=== PATIENT | female | born 1940 | race Caucasian/White ===

== ENCOUNTER 2025-08-04 05:48 | Emergency (ER) | payer BC ==
[~2025-08-04] VITALS: Ht 154.9 cm; Wt 62.0 kg
--- NOTE | 2025-08-04 05:54 | ELECTROCARDIOGRAPH REPORT ---
[facility] Test Date: 2025-08-04 Test Time: 05:49:06 Pat Name: JACKIE SINGLETARY Department: EMERGENCY ROOM Room: Gender: F Rerecording Mixer: JENNIFER : 1940 Requested By: MARIA ELENA SIMMS Order Number: [id number] Reading MD: Dr. Denny Pearson Measurements Intervals [place] Rate: 69 P: 71 CO: 129 QRS: 4 QRSD: 89 T: 58 QT: 430 QTc: 461 Interpretive Statements Sinus rhythm Low voltage, precordial leads Electronically Signed On 08-12-2025 0:23:[address] Denny Pearson Please click the below link to view image of tracing.
--- NOTE | 2025-08-04 06:02 | Physician Documentation ---
History of Present Illness General Chief Complaint: Dizziness Stated Complaint: DIZZINESS Time Seen by MD: 06:01 History of Present Illness Initial Comments The patient is a an 85-year-old female states that she went to the bathroom this morning and then when she is trying to get off the toilet she became dizzy fell she does not recall hitting her head but she did notice that she has a hematoma to the right side of her right eyebrow. The patient states she otherwise was feeling well. She denies any recent fevers or chills. The patient states she walks a mi a day. And was unable to walk yesterday secondary to the rain. The patient denies any chest pain the patient denies any shortness of breath symptoms are mild and persistent. She does note that she has a significantly dry mouth. Medication Reconciliation Allergies: Coded Allergies: No Known Allergies (Unverified , 08/04/25) Scheduled Atorvastatin Calcium* (Lipitor*), 1 TAB PO DAILY, (Reported) Cefpodoxime Proxetil (Cefpodoxime Proxetil), 1 TAB PO Q12H Duloxetine HCl (Duloxetine HCl), 1 CAP PO DAILY, (Reported) Gabapentin (Gabapentin), 2 TAB PO Q8H, (Reported) Omeprazole (Prilosec), 1 CAP PO DAILY, (Reported) Review of Systems All Other Systems at this time: Reviewed and Negative Physical Exam Physical Exam Vital Signs: Temperature: 97.6, Source: Oral, Heart Rate: 67, Respiratory Rate: 12, BP: 110/67, Pulse Oximetry: 92, Weight: 62.000 Physical Exam VITALS: Reviewed and as above. GENERAL: Alert, no apparent distress. HEENT: Normocephalic, atraumatic, PERRL, EOMI, dry mucosa, no erythema RESPIRATORY: Trace crackles bilateral bases, normal breath sounds, no respiratory distress. CHEST: No accessory muscle use, no retractions CV: Regular rate, rhythm, no edema, no murmur, No: JVD GI: Soft, non-tender, bowels sounds present, no rebound, guarding, or rigidity BACK: No CVA tenderness, or swelling MUSCULOSKELETAL: No deformities, no edema SKIN: Warm and dry, no rash 4 x 2 cm area of ecchymosis to the right of the right eyebrow. NEURO: Oriented x4, No motor or sensory deficit PSYCH: Normal mood and affect, no agitation Progress Results/Orders Results/Orders Orders - OHSHARI HAY MD Ct Head (08/04/25 07:32) Cult Urine + [place] Ct (08/04/25 09:29) Completed Orders - SHARI HAY MD Normal Saline 1000ml (0.9% Sodium Chlori (08/04/25 06:30) Procalcitonin (08/04/25 06:30) Hs Troponin I W Calculations (08/04/25 06:33) BMP (08/04/25 06:33) PBNP (08/04/25 06:33) Ct Head (08/04/25 07:32) Normal Saline 1000ml (0.9% Sodium Chlori (08/04/25 07:00) Ua W/Microscopic, Cult If Ind (08/04/25 08:52) Vital Signs 08/04/25 08/04/25 08/04/25 08/04/25 05:49 06:28 06:28 07:54 Temp 97.6 97.6 Pulse 67 73 Resp 12 10 10 B/P (MAP) 110/67 133/62 (85) Pulse Ox 92 96 08/04/25 08/04/25 08:16 09:38 Temp 97.6 Pulse 68 76 Resp 15 20 B/P (MAP) 132/63 (86) 126/72 Pulse Ox 95 94 Laboratory Tests Test 08/04/25 06:00 08/04/25 07:44 08/04/25 08:52 White Blood Count 5.9 Red Blood Count 4.60 Hemoglobin 14.0 Hematocrit 42.7 Mean Corpuscular Volume 92.8 Mean Corpuscular Hemoglobin 30.4 Mean Corpuscular Hemoglobin Concent 32.7 L Red Cell Distribution Width 13.6 Platelet Count 247 Mean Platelet Volume 7.7 Neutrophils (%) (Auto) 52.8 Lymphocytes (%) (Auto) 32.9 Monocytes (%) (Auto) 9.6 Eosinophils (%) (Auto) 3.9 Basophils (%) (Auto) 0.8 Neutrophils # (Auto) 3.1 Lymphocytes # (Auto) 1.9 Monocytes # (Auto) 0.6 Eosinophils # (Auto) 0.2 Basophils # (Auto) 0.0 CBC Comment Chemistry Comments Sodium Level 142 Potassium Level 4.4 Chloride Level 108 H Carbon Dioxide Level 28.4 Anion Gap 6 L Blood Urea Nitrogen 11 Creatinine 0.68 Estimated GFR/1.73 m2 82 BUN/Creatinine Ratio 16.2 Glucose Level 92 Calcium Level 8.4 L Troponin I High Sensitivity 5 Pro-B-Type Natriuretic Peptide 65 Albumin 3.2 L Procalcitonin < 0.05 Urine Specimen Description Cln catch midstream Urine Color Yellow Urine Clarity Slightly cloudy Urine pH 7.0 Urine Specific [place] <=1.005 Urine Protein Negative Urine Glucose (UA) Negative Urine Ketones Negative Urine Occult Blood Negative Urine Nitrite Negative Urine Bilirubin Negative Urine Urobilinogen 0.2 Urine Leukocyte Esterase Small H Urine RBC 0-2 Urine WBC 5-10 H Urine Squamous Epithelial Cells Few Urine Amorphous Phosphates 1+ Urine Bacteria 1+ Urine Culture Indicated Indicated Volume Urine Centrifuged 5 ml Urine Comment Low volume Microbiology Date/Time Source Procedure Growth Status 08/04/25 09:29 Urine Clean Catch Midstream Urine Culture - Preliminary Culture received. Resulted EKG/XRAY/CT/US/VASC/MRI Chest X-Ray : Additional Comments Patient: JACKIE SINGLETARY Medical Record: [id number] : 1940, Age: 85 Sex: Female Location: ER Patient Status: [facility] ER Service Date/Time: 08/04/25549 Ordering Physician: MARIA ELENA SIMMS MD Exam: CHEST,SINGLE VIEW CHEST RADIOGRAPH INDICATION: CP TECHNIQUE: Single frontal view of the chest was obtained COMPARISON: None FINDINGS: Lines and Tubes: None Lungs: Clear Pleura: No effusion. No pneumothorax. Cardiomediastinal contours: Unremarkable Bones: Unremarkable IMPRESSION: 1. No acute disease. Electronically Signed by:CHI HAYES MD Date & Time: 08/04/25618 Dictated by: CHI HAYES MD Dictation date and time: 08/04/25618 Primary Care Provider: NO PRIMARY CARE PROVIDER cc: MARIA ELENA SIMMS MD ~ CT : Impression CAT SCAN Patient: JACKIE SINGLETARY Medical Record: [id number] [facility] : 1940, Age: 85 Sex: Female Location: ER Patient Status: [facility] ER Service Date/Time: 08/04/25731 Ordering Physician: SHARI HAY MD Exam: CT HEAD EXAM: CT CT HEAD HISTORY: fall COMPARISON: None TECHNIQUE: Noncontrast axial CT images of the head were performed. Sagittal and coronal reformatted images were obtained. This CT exam was performed using 1 or more of the following dose reduction techniques: Automated exposure control, adjustment of the mA and/or kv according to patient size, or the use of iterative reconstruction techniques. Radiation Dose: CTDI volume is 50.46 mGy. Dose-length product is 797.68 mGy*cm FINDINGS: There is subtle increased attenuation involving the right posterior aspect of the zeb (images 6-7, series 2) measuring 9 mm transverse. No midline shift, hydrocephalus, or evidence of acute large vessel infarct. There is moderate decreased attenuation in the periventricular white matter. 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 The partially-visualized paranasal sinuses are clear. The bilateral mastoid air cells and middle ear spaces are clear. There are advanced degenerative changes of the bilateral temporomandibular joints. No cranial fracture. There may be mild left frontal supraorbital scalp edema. IMPRESSION: 1. 9 mm subtle increased attenuation in the right posterior zeb may represent calcification, subacute hemorrhage, or atypical glial mass. In the absence of comparison imaging, recommend follow-up pre and post-contrast MRI of the brain for better characterization. If the patient is not compatible with MRI, recommend follow-up noncontrast CT scan of the head in 2-4 hours to re-evaluate for stability of this appearance. 2. Chronic ischemic changes as above. 3. No cranial fracture. Electronically Signed by:VANIA PAREKH MD Date & Time: 08/04/25742 Dictated by: VANIA PAREKH MD Dictation date and time: 08/04/25 0743 Primary Care Provider: NO PRIMARY CARE PROVIDER cc: SHARI HAY MD ~ Medical Decision Making Additional information obtaine: old records Findings The patient is a 12 lead EKG demonstrates a normal axis. The patient has a heart rate of 69. She has a normal sinus rhythm. The patient has low voltages. The patient's EKG was interpreted by me as being borderline. The patient had a ground level fall the patient had a CT imaging of the head which was unremarkable CT imaging was reviewed by me it showed no evidence of mass blood or significant soft tissue swelling. The patient's prior hospitalizations has been reviewed the patient has had her neurologic baseline the patient's EKG was nonischemic the patient's rn cardiac cath was normal sinus rhythm and her pulse oximetry was interpreted as adequate and normal the patient will be discharged Differential Diagnosis Concussion, intracranial hemorrhage, facial fracture Departure Time of Disposition: 09:36 Disposition: HOME / SELF CARE / HOMELESS Impression: Primary Impression: Dizziness Additional Impressions: UTI (urinary tract infection) Qualified Codes: N39.0 - Urinary tract infection, site not specified Head injury, acute Qualified Codes: S09.90XA - Unspecified injury of head, initial encounter Discharge Instructions: Dizziness, Urinary Tract Infection, Adult Referrals: NO PRIMARY CARE PROVIDER (PCP) Prescriptions Cefpodoxime Proxetil (Cefpodoxime Proxetil) 100 Mg Tablet 1 TAB PO Q12H for 7 Days, #14 TAB 0 Refills Prov: SHARI HAY MD 08/04/25 Signature Scribe Signature: No scribe Attestation: The note accurately reflects work and decisions made by me.Shari Hay MD 08/05/25 06:16 SHARI HAY MD Aug 04, 2025 06:02
--- NOTE | 2025-08-04 06:22 | RADIOLOGY REPORT ---
CHEST RADIOGRAPH INDICATION: CP TECHNIQUE: Single frontal view of the chest was obtained COMPARISON: None FINDINGS: Lines and Tubes: None Lungs: Clear Pleura: No effusion. No pneumothorax. Cardiomediastinal contours: Unremarkable Bones: Unremarkable IMPRESSION: 1. No acute disease.
[2025-08-04 06:27] LABS: MEAN PLATELET VOLUME 7.7 FL (7.4-10.4); RED CELL DISTRIBUTION WIDTH 13.6 % (11.5-14.5)
[2025-08-04] MEDS: normal saline 1000ML IV soln IVB ONE ×2 (06:34→07:53)
--- NOTE | 2025-08-04 07:46 | RADIOLOGY REPORT ---
EXAM: CT CT HEAD HISTORY: fall COMPARISON: None TECHNIQUE: Noncontrast axial CT images of the head were performed. Sagittal and coronal reformatted images were obtained. This CT exam was performed using 1 or more of the following dose reduction techniques: Automated exposure control, adjustment of the mA and/or kv according to patient size, or the use of iterative reconstruction techniques. Radiation Dose: CTDI volume is 50.46 mGy. Dose-length product is 797.68 mGy*cm FINDINGS: There is subtle increased attenuation involving the right posterior aspect of the zeb (images 6-7, series 2) measuring 9 mm transverse. No midline shift, hydrocephalus, or evidence of acute large vessel infarct. There is moderate decreased attenuation in the periventricular white matter. 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 The partially-visualized paranasal sinuses are clear. The bilateral mastoid air cells and middle ear spaces are clear. There are advanced degenerative changes of the bilateral temporomandibular joints. No cranial fracture. There may be mild left frontal supraorbital scalp edema. IMPRESSION: 1. 9 mm subtle increased attenuation in the right posterior zeb may represent calcification, subacute hemorrhage, or atypical glial mass. In the absence of comparison imaging, recommend follow-up pre and post-contrast MRI of the brain for better characterization. If the patient is not compatible with MRI, recommend follow-up noncontrast CT scan of the head in 2-4 hours to re-evaluate for stability of this appearance. 2. Chronic ischemic changes as above. 3. No cranial fracture.
[2025-08-04] MEDS ORDERED: GABA-1405 PO (08:00)
[2025-08-04] MEDS ORDERED: OMEP40CA21 PO (08:01)
[2025-08-04] MEDS ORDERED: ATOR20TA PO (08:01)
[2025-08-04] MEDS ORDERED: DULO20CA18 PO (08:01)
[2025-08-04 09:05] LABS: CREATININE 0.68 MG/DL (0.40-0.90); PRO BRAIN NATRIURETIC PEPTIDE 65 PG/ML (0-450); TOTAL CARBON DIOXIDE 28.4 MMOL/L (24-32); eCRCL 44 ML/MIN; eGFR 82 ML/MIN
[2025-08-04 09:19] LABS: LEUKOCYTE ESTERASE ,URINE SMALL (Neg); NITRITES, URINE NEGATIVE (Neg); OCCULT BLOOD,URINE NEGATIVE (Neg)
[2025-08-04 09:22] LABS: UA COLLECTION TYPE CLN CATCH MIDSTREAM
[2025-08-04 09:28] LABS: AMORPHOUS PHOSPHATES 1+; SQUAMOUS EPITHELIAL CELL,UR FEW /LPF (FEW)
[2025-08-04] MEDS ORDERED: CEFP100T7 PO (09:31)
[2025-08-04 09:38] VITALS: BP 126/72; PULSE 76; RESP 20; TEMP 97.6; O2SAT 94
== END 2025-08-04 09:50 | disposition home or self-care (01) ==
LOC: ER 05:48
DX: S00.11XA Contusion of right eyelid and periocular area, initial encounter (principal); N39.0 Urinary tract infection, site not specified; R42 Dizziness and giddiness; Z79.899 Other long term (current) drug therapy; W18.39XA Other fall on same level, initial encounter; Y93.89 Activity, other specified; Y92.89 Other specified places as the place of occurrence of the external cause; Y99.8 Other external cause status
CPT/HCPCS: 36415; 70450; 71045; 80048; 81001; 83880; 84145; 84484; 85025; 87077; 87088; 87186; 93005; 96360; 96361; 99285; J7030